=== PATIENT | male | born 2000 | race African-American/Black ===

== ENCOUNTER 2019-01-11 21:40 | Emergency (ER) | payer OTHER ==
[~2019-01-11] VITALS: Ht 185.4 cm; Wt 72.0 kg
[~2019-01-11 21:40] MED LIST: NORVASC; enalapril
[2019-01-11] MEDS: LORAZEPAM 2MG/ML CPJ IV ONE (22:33)
[2019-01-11] MEDS: SODIUM CHLORIDE 0.9% 1,000 ML IV ONE (22:33)
[2019-01-11] MEDS: KETOROLAC 15MG/ML VIAL IV ONE (22:33)
[2019-01-11 22:40] LABS: BASOPHILS % 0.4 % (0.0-2.0); CHLORIDE 108 mEq/L (98-107); EOSINOPHILS % 0.9 % (0.0-5.0); HEMATOCRIT. 39.8 % (42.0-52.0); HEMOGLOBIN. 13.1 g/dL (14.0-18.0); LYMPHOCYTES % 24.2 % (20.0-50.0); MEAN CORPUSCULAR HEMOGLOBIN 30.1 pg (28.0-32.0); MEAN CORPUSCULAR VOLUME 91.4 fL (80.0-94.0); MONOCYTES % 8.4 % (2.0-8.0); NEUTROPHILS % 66.1 % (40.0-76.0); PLATELET 154 x1000/uL (130-400); RED BLOOD CELL COUNT 4.35 mill/uL (4.7-6.1); RED CELL DISTRIBUTION WIDTH 14.1 % (11.6-14.6)
[2019-01-11 22:45] LABS: ETHANOL BLOOD < 10 mg/dL
[2019-01-11 22:49] LABS: CREATINE KINASE 251 IU/L (39-308)
[2019-01-12 01:50] VITALS: BP 179/107
== END 2019-01-12 02:03 | disposition home or self-care (01) ==
LOC: ER 21:40
DX: R07.89 Other chest pain (principal); F41.9 Anxiety disorder, unspecified; I10 Essential (primary) hypertension
CPT/HCPCS: 36415; 71045; 80053; 80320; 82550; 83880; 84484; 85025; 93005; 96374; 96375; 99284; J1885; J2060; J7030; Z7610; G0480

== ENCOUNTER 2022-05-28 13:49 | Emergency (ER) | payer OTHER ==
[~2022-05-28] VITALS: Ht 188 cm; Wt 82.0 kg
[2022-05-28] MEDS ORDERED: ONDANSETRON HCL 4MG/2ML INJ IV ONE (14:30)
[2022-05-28 16:53] LABS: BASOPHILS % 0.2 % (0.0-2.0); HEMATOCRIT. 41.7 % (42.0-52.0); LYMPHOCYTES % 11.3 % (20.0-50.0); MEAN CORPUSCULAR HEMOGLOBIN 31.2 pg (28.0-32.0); MEAN CORPUSCULAR VOLUME 93.4 fL (80.0-94.0); MONOCYTES % 3.8 % (2.0-8.0); NEUTROPHILS % 84.7 % (40.0-76.0); PLATELET 125 x1000/uL (130-400); RED BLOOD CELL COUNT 4.47 mill/uL (4.7-6.1); RED CELL DISTRIBUTION WIDTH 12.7 % (11.6-14.6)
[2022-05-28 17:08] LABS: CHLORIDE 104 mEq/L (98-107)
[2022-05-28 17:19] LABS: ETHANOL BLOOD < 10 mg/dL
[2022-05-28 18:10] VITALS: BP 182/123
== END 2022-05-28 18:42 | disposition home or self-care (01) ==
LOC: ER 13:49
DX: I10 Essential (primary) hypertension (principal); R00.1 Bradycardia, unspecified; Z63.4 Disappearance and death of family member
CPT/HCPCS: 36415; 71045; 80053; 80307; 80320; 80329; 83880; 84484; 85025; 93005; 99285; G0480

== ENCOUNTER 2025-04-24 03:00 | Inpatient (IN) | payer OTHER ==
[2025-04-24] VITALS (50 sets, daily range): BP systolic 158–209; BP diastolic 90–134; PULSE 86–118; RESP 15–35; TEMP 36.4–37.1408; O2SAT 73–100
[~2025-04-24] VITALS: Ht 182.9 cm; Wt 81.7 kg
[2025-04-24 03:57] LABS: BASOPHILS % 0.5 % (0.0-2.0); EOSINOPHILS % 1.6 % (0.0-5.0); HEMATOCRIT. 23.0 % (42.0-52.0); HEMOGLOBIN. 7.5 g/dL (14.0-18.0); LYMPHOCYTES % 7.9 % (20.0-50.0); MEAN PLATELET VOLUME 9.1 fl (7.4-10.4); MONOCYTES % 9.9 % (2.0-8.0); NEUTROPHILS % 80.1 % (40.0-76.0); PLATELET 198 x1000/uL (130-400); RED BLOOD CELL COUNT 2.53 mill/uL (4.7-6.1); RED CELL DISTRIBUTION WIDTH 15.0 % (11.6-14.6)
[2025-04-24] MEDS: HYDRALAZINE 20MG/ML VIAL IV ONE (04:11)
[2025-04-24 04:21] LABS: ETHANOL BLOOD < 10 mg/dL (<10); TROPONIN I HIGH SENSITIVITY 45 ng/L (3.0-53)
[2025-04-24 04:22] LABS: ASPARTATE AMINOTRANSFERASE 17 IU/L (<34); BILIRUBIN DIRECT < 0.1 mg/dL (<=3.0); BILIRUBIN TOTAL 0.2 mg/dL (0.1-1.0); PROTEIN TOTAL 5.4 g/dL (6.0-8.3)
[2025-04-24 04:22] LABS: UREA NITROGEN BLOOD 60.0 mg/dL (9-23)
[2025-04-24 04:25] LABS: INR 0.9
[2025-04-24 04:26] LABS: CREATININE 14.0 mg/dL (0.6-1.3)
[2025-04-24] MEDS: AMLODIPINE 10MG TABLET PO NR (05:05)
[2025-04-24] MEDS: HYDRALAZINE 20MG/ML VIAL IV NR (05:05)
[2025-04-24] MEDS: MORPHINE SULFATE 4 MG/ML INJ (FOR IV/IM USE) IV NR (05:25)
[2025-04-24] MEDS: ONDANSETRON HCL 4MG/2ML INJ IV NR (05:25)
[2025-04-24] MEDS: FUROSEMIDE 40MG/4ML VIAL IVP ONE (05:25)
[2025-04-24 06:42] LABS: CLARITY URINE CLEAR (CLEAR); COLOR URINE YELLOW (YELLOW); GLUCOSE URINE TRACE (NEGATIVE); KETONES URINE NEGATIVE (NEGATIVE); LEUKOCYTE ESTERASE URINE NEGATIVE (NEGATIVE); NITRITE URINE NEGATIVE (NEGATIVE); OCCULT BLOOD URINE NEGATIVE (NEGATIVE); PH URINE 8.5 (4.5-8.0); PROTEIN URINE 2+ (NEGATIVE); SPECIFIC GRAVITY URINE 1.008 (1.005-1.030); UROBILINOGEN URINE 0.2 E.U./dL (0.2-1.0)
[2025-04-24 06:56] LABS: *AMPHETAMINES SCREEN URINE NEGATIVE (NEGATIVE); *BARBITURATES SCREEN URINE NEGATIVE (NEGATIVE); *BENZODIAZEPINES SCREEN URINE NEGATIVE (NEGATIVE); *COCAINE SCREEN URINE NEGATIVE (NEGATIVE); BACTERIA URINE NONE SEEN; CANNABINOID URINE SCREEN NEGATIVE (NEGATIVE); ECSTASY MDMA SCREEN URINE NEGATIVE (NEGATIVE); METHADONE URINE SCREEN NEGATIVE (NEGATIVE); OPIATES URINE SCREEN NEGATIVE (NEGATIVE); PHENCYCLIDINE URINE SCREEN NEGATIVE (NEGATIVE); RBC URINE 0-2 /hpf (0-2); SQUAMOUS EPITHELIAL CELL URINE FEW /lpf (RARE/1+); WBC URINE 0-2 /hpf (0-2)
[2025-04-24] MEDS: NICARDIPINE 40MG/200ML PREMIX 200 ML IV PRN (07:00)
[2025-04-24] MEDS: LORAZEPAM 2MG/ML UD SYRINGE IV NR (07:07)
[2025-04-24] MEDS ORDERED: DOCUSATE SODIUM 100MG CAPSULE PO PRN (11:00)
[2025-04-24] MEDS ORDERED: CLONIDINE 0.1MG TABLET PO PRN (11:00)
[2025-04-24] MEDS ORDERED: IPRATROPIUM/ALBUTEROL 0.5-3(2.5)MG/3ML NEB HHN PRN (11:00)
[2025-04-24] MEDS ORDERED: ONDANSETRON HCL 4MG/2ML INJ IV PRN (11:00)
[2025-04-24] MEDS ORDERED: ACETAMINOPHEN 325MG TABLET PO PRN ×2 (11:00)
[2025-04-24] MEDS ORDERED: CLON0.3T PO (11:59)
[2025-04-24] MEDS ORDERED: OXYC10TA48 PO (11:59)
[2025-04-24] MEDS ORDERED: NICARDIPINE 100 MG in SODIUM CHLORIDE 0.9% 60 ML IV PRN (12:00)
[2025-04-24] MEDS: NICARDIPINE 50 MG in SODIUM CHLORIDE 0.9% 250 ML IV PRN (12:22)
[2025-04-24] MEDS ORDERED: CEFEPIME 2GM IN DEXT 5% 100ML IV SCH (12:45)
[2025-04-24] MEDS: CEFEPIME 2GM/100ML 100 ML IV SCH (14:00)
[2025-04-24] MEDS: ENOXAPARIN 30MG/0.3ML SYR SUBCUT SCH (14:50)
[2025-04-24] MEDS: CLONIDINE 0.2MG TABLET PO SCH (15:03)
[2025-04-24 15:43] LABS: TROPONIN I HIGH SENSITIVITY 64 ng/L (3.0-53)
[2025-04-24 16:01] LABS: HEPATITIS A AB IGM NEGATIVE (Negative); HEPATITIS B CORE AB IGM NEGATIVE (Negative)
[2025-04-24 16:02] LABS: HEPATITIS C AB NON REACTIVE (Neg) (Negative)
[2025-04-24] MEDS: MINOXIDIL 10MG TABLET PO SCH (16:49)
[2025-04-24] MEDS ORDERED: FOLI-43 MT (17:49)
[2025-04-24] MEDS ORDERED: CARV25TA47 PO (17:49)
[2025-04-24] MEDS ORDERED: SPIR25TA6 MT (17:49)
[2025-04-24] MEDS ORDERED: AMLO-337 MT (17:49)
[2025-04-24] MEDS ORDERED: MINO2.5T2 MT (17:49)
[2025-04-24] MEDS ORDERED: TORS20TA4 MT (17:49)
[2025-04-24] MEDS: AMLODIPINE 5MG TABLET PO SCH (20:10)
[2025-04-24] MEDS: METOPROLOL TARTRATE 50MG TABLET PO SCH (20:10)
== END 2025-04-24 22:53 | disposition left against medical advice (07) | DRG 189 ==
LOC: ER 03:00 → EDBEDREQTM 05:41 → EDBEDREQ 05:41 → EDBEDREQSVC 05:41 → ENRESERV 05:56 → MICUNO 06:06 → EDBEDREQSVC 06:10 → EDBEDREQTM 06:10 → ENRESERVTM 06:13 → CANRESERV 06:13 → ENRESERV 08:32
PROVIDERS: ADMIT Internal Medicine; ATTEND Internal Medicine
PROC: 5A1D70Z Performance of Urinary Filtration, Intermittent, Less than 6 Hours Per Day (ICD-10-PCS; principal; 2025-04-24)
PROC: 5A09357 Assistance with Respiratory Ventilation, Less than 24 Consecutive Hours, Continuous Positive Airway Pressure (ICD-10-PCS; 2025-04-24)
DX: J96.00 Acute respiratory failure, unspecified whether with hypoxia or hypercapnia (principal); J18.9 Pneumonia, unspecified organism; N18.6 End stage renal disease; I16.1 Hypertensive emergency; I12.0 Hypertensive chronic kidney disease with stage 5 chronic kidney disease or end stage renal disease; D63.8 Anemia in other chronic diseases classified elsewhere; D72.0 Genetic anomalies of leukocytes; Z53.29 Procedure and treatment not carried out because of patient's decision for other reasons; E87.70 Fluid overload, unspecified; Z99.2 Dependence on renal dialysis; Z79.899 Other long term (current) drug therapy
CPT/HCPCS: 36415; 71045; 80048; 80076; 80305; 80320; 81003; 83735; 83880; 84145; 84484; 85025; 85379; 86705; 86709; 87340; 90935; 93005; 94070; 94660; 94664; 96374; 96375; 98960; 99285; J0360; J0692; J1650; J1938; J2060; J3490; J7050; G0480

== ENCOUNTER 2025-05-15 04:12 | Inpatient (IN) | payer OTHER ==
[2025-05-15] VITALS (56 sets, daily range): BP systolic 157–228; BP diastolic 95–146; PULSE 61–108; RESP 15–26; TEMP 36.114–36.9; O2SAT 94–100
[~2025-05-15] VITALS: Ht 177.8 cm; Wt 78.6 kg
[~2025-05-15 04:12] MED LIST changes: +AMLO-337 MT; +CARV25TA47 PO; +CLON0.3T PO; +FOLI-43 MT; +MINO2.5T2 MT; -NORVASC; +OXYC10TA48 PO; +SPIR25TA6 MT; +TORS20TA4 MT; -enalapril
[2025-05-15] MEDS: PIPERACILLIN/TAZO 3.375G/50ML 50 ML IV ONE (04:56)
[2025-05-15] MEDS: ONDANSETRON HCL 4MG/2ML INJ IV ONE (04:56)
[2025-05-15] MEDS: MORPHINE SULFATE 4 MG/ML INJ (FOR IV/IM USE) IV ONE (04:57)
[2025-05-15] MEDS: SODIUM CHLORIDE 0.9% 500 ML IV ONE (04:58)
[2025-05-15] MEDS: HYDRALAZINE 20MG/ML VIAL IV ONE (05:21)
[2025-05-15 05:39] LABS: BASOPHILS % 0.4 % (0.0-2.0); EOSINOPHILS % 1.5 % (0.0-5.0); HEMATOCRIT. 23.8 % (42.0-52.0); HEMOGLOBIN. 7.9 g/dL (14.0-18.0); LYMPHOCYTES % 8.4 % (20.0-50.0); MEAN PLATELET VOLUME 9.4 fl (7.4-10.4); MONOCYTES % 7.3 % (2.0-8.0); NEUTROPHILS % 82.4 % (40.0-76.0); PLATELET 182 x1000/uL (130-400); RED BLOOD CELL COUNT 2.65 mill/uL (4.7-6.1); RED CELL DISTRIBUTION WIDTH 14.5 % (11.6-14.6)
[2025-05-15 05:46] LABS: INR 0.9
[2025-05-15 05:48] LABS: UREA NITROGEN BLOOD 61 mg/dL (9-23)
[2025-05-15 05:50] LABS: ASPARTATE AMINOTRANSFERASE 14 IU/L (<34); BILIRUBIN DIRECT < 0.1 mg/dL (<=3.0); BILIRUBIN TOTAL 0.3 mg/dL (0.1-1.0); PROTEIN TOTAL 6.6 g/dL (6.0-8.3)
[2025-05-15 05:51] LABS: CREATININE 16.2 mg/dL (0.6-1.3)
[2025-05-15 05:52] LABS: TROPONIN I HIGH SENSITIVITY 74 ng/L (3.0-53)
[2025-05-15] MEDS: VANCOMYCIN 1G PREMIX 200 ML IV ONE (06:03)
[2025-05-15 06:10] LABS: BG BASE EXCESS -1.8 mmol/L (-2.0-3.0); BG CARBOXYHEMOGLOBIN 1.3 % (0.5-1.5); BG DEOXYHEMOGLOBIN 8.3 % (0.0-5.0); BG FLOW(L/min) 6.00 L/min; BG FRACTION INSPIRED OXYGEN 44; BG HCO3 ACT 22.5 mmol/L (21.0-28.0); BG METHEMOGLOBIN 0.3 % (0.5-1.5); BG OXYGEN SATURATION 91.6 % (94.0-98.0); BG OXYHEMOGLOBIN 90.1 % (94.0-98.0); BG PCO2 36.0 mmHg (35.0-48.0); BG PH 7.413 (7.350-7.450); BG PO2 65.6 mmHg (83.0-108.0); BG SAMPLE SITE LEFT RADIAL; BG TOTAL HEMOGLOBIN 8.8 g/dL (13.5-17.5); BG VENT MODE NASAL CANNULA
[2025-05-15] MEDS: NITROGLYCERIN 50MG PREMIX 250 ML IV ONE (06:24)
[2025-05-15] MEDS ORDERED: NALOXONE HCL 0.4MG/ML VIAL IV PRN (09:30)
[2025-05-15] MEDS: MORPHINE SULFATE 4 MG/ML INJ (FOR IV/IM USE) IV PRN ×2 (09:38→13:00)
[2025-05-15] MEDS ORDERED: ONDANSETRON HCL 4MG/2ML INJ IV PRN (10:30)
[2025-05-15] MEDS ORDERED: DEXTROSE 50% WATER 50ML SYRINGE IV PRN (10:30)
[2025-05-15] MEDS: INSULIN LISPRO 100 UNITS/ML SUBCUT SCH (12:00)
[2025-05-15] MEDS: NITROGLYCERIN 50MG PREMIX 250 ML IV PRN (12:04)
[2025-05-15 12:10] LABS: HEPATITIS A AB IGM NEGATIVE (Negative); HEPATITIS B CORE AB IGM NEGATIVE (Negative)
[2025-05-15 12:11] LABS: HEPATITIS C AB NON REACTIVE (Neg) (Negative)
[2025-05-15] MEDS ORDERED: ACETAMINOPHEN 325MG TABLET PO PRN ×2 (12:30)
[2025-05-15] MEDS: IPRATROPIUM/ALBUTEROL 0.5-3(2.5)MG/3ML NEB HHN SCH (12:39)
[2025-05-15] MEDS: BLOOD SUGAR DIAGNOSTIC STRIP TEST SCH (12:58)
[2025-05-15] MEDS: DIPHENHYDRAMINE 50MG/ML VIAL IV PRN (12:59)
[2025-05-15 13:27] LABS: C REACTIVE PROTEIN HIGH SENS 4.91 mg/l (<1.00); ETHANOL BLOOD < 10 mg/dL (<10); LDL CHOLESTEROL 94 mg/dL (5-100); TRIGLYCERIDE 113 mg/dL (0-150)
[2025-05-15 13:31] LABS: TROPONIN I HIGH SENSITIVITY 71.0 ng/L (3.0-53)
[2025-05-15] MEDS: LEVOFLOXACIN 750MG PREMIX 150 ML IV NR (13:33)
[2025-05-15] MEDS: SODIUM CHLORIDE 0.9% 3ML FLUSH IVF SCH (13:54)
[2025-05-15 14:07] LABS: CLARITY URINE CLEAR (CLEAR); COLOR URINE YELLOW (YELLOW); GLUCOSE URINE TRACE (NEGATIVE); KETONES URINE NEGATIVE (NEGATIVE); LEUKOCYTE ESTERASE URINE NEGATIVE (NEGATIVE); NITRITE URINE NEGATIVE (NEGATIVE); OCCULT BLOOD URINE NEGATIVE (NEGATIVE); PH URINE 8.5 (4.5-8.0); PROTEIN URINE 2+ (NEGATIVE); SPECIFIC GRAVITY URINE 1.009 (1.005-1.030); UROBILINOGEN URINE 0.2 E.U./dL (0.2-1.0)
[2025-05-15] MEDS: HYDRALAZINE 20MG/ML VIAL IV PRN ×2 (14:20→18:24)
[2025-05-15 14:27] LABS: BACTERIA URINE NONE SEEN; RBC URINE 0-2 /hpf (0-2); SQUAMOUS EPITHELIAL CELL URINE RARE /lpf (RARE/1+); WBC URINE 0-2 /hpf (0-2); YEAST URINE NONE SEEN
[2025-05-15 14:30] LABS: *AMPHETAMINES SCREEN URINE NEGATIVE (NEGATIVE); *BARBITURATES SCREEN URINE NEGATIVE (NEGATIVE); *BENZODIAZEPINES SCREEN URINE NEGATIVE (NEGATIVE); *COCAINE SCREEN URINE NEGATIVE (NEGATIVE); CANNABINOID URINE SCREEN NEGATIVE (NEGATIVE); ECSTASY MDMA SCREEN URINE NEGATIVE (NEGATIVE); METHADONE URINE SCREEN NEGATIVE (NEGATIVE); OPIATES URINE SCREEN NEGATIVE (NEGATIVE); PHENCYCLIDINE URINE SCREEN NEGATIVE (NEGATIVE)
[2025-05-15] MEDS: AMLODIPINE 10MG TABLET PO SCH (14:43)
[2025-05-15] MEDS: CLONIDINE 0.3MG TABLET PO SCH (16:31)
[2025-05-15] MEDS ORDERED: LOSA-415 MT (16:53)
[2025-05-15 17:33] LABS: TROPONIN I HIGH SENSITIVITY 67 ng/L (3.0-53)
[2025-05-15] MEDS: LOSARTAN 100 MG TABLET PO SCH (18:24)
[2025-05-15] MEDS: MINOXIDIL 2.5MG TABLET PO SCH (18:24)
[2025-05-15] MEDS: CARVEDILOL 12.5MG TABLET PO SCH (18:25)
[2025-05-16] VITALS (57 sets, daily range): BP systolic 135–189; BP diastolic 84–119; PULSE 70–104; RESP 13–27; TEMP 36.4–36.83628; O2SAT 93–100
[2025-05-16 05:30] LABS: BASOPHILS % 0.5 % (0.0-2.0); EOSINOPHILS % 2.3 % (0.0-5.0); HEMATOCRIT. 21.9 % (42.0-52.0); HEMOGLOBIN. 7.2 g/dL (14.0-18.0); LYMPHOCYTES % 11.7 % (20.0-50.0); MEAN PLATELET VOLUME 8.9 fl (7.4-10.4); MONOCYTES % 12.6 % (2.0-8.0); NEUTROPHILS % 72.9 % (40.0-76.0); PLATELET 166 x1000/uL (130-400); RED BLOOD CELL COUNT 2.46 mill/uL (4.7-6.1); RED CELL DISTRIBUTION WIDTH 14.9 % (11.6-14.6)
[2025-05-16 05:41] LABS: UREA NITROGEN BLOOD 42.0 mg/dL (9-23)
[2025-05-16 06:01] LABS: CREATININE 12.2 mg/dL (0.6-1.3)
[2025-05-16] MEDS: ONDANSETRON HCL 4MG/2ML INJ IV PRN (08:12)
[2025-05-16] MEDS ORDERED: ENOXAPARIN 30MG/0.3ML SYR SUBCUT SCH (09:00)
[2025-05-16] MEDS: PANTOPRAZOLE SODIUM 40 MG/VIAL IV SCH (09:55)
[2025-05-16] MEDS: ENOXAPARIN 30MG/0.3ML SYR SUBCUT SCH (09:55)
[2025-05-16] MEDS: FOLIC ACID 1MG TABLET PO SCH (09:56)
[2025-05-16] MEDS ORDERED: DOXAZOSIN MESYLATE 2MG TABLET PO SCH (16:00)
[2025-05-16] MEDS ORDERED: NIFEDIPINE XL 90MG TAB PO SCH (17:00)
[2025-05-17] MEDS ORDERED: LEVOFLOXACIN 500MG PREMIX 100 ML IV SCH (11:00)
== END 2025-05-16 19:19 | disposition home or self-care (01) | DRG 871 ==
LOC: ER 04:17 → MICUSO 06:03 → EDBEDREQ 06:45 → EDBEDREQSVC 06:45 → EDBEDREQTM 06:45 → ENRESERV 08:00
PROVIDERS: ADMIT Internal Medicine; ATTEND Internal Medicine
PROC: 5A1D70Z Performance of Urinary Filtration, Intermittent, Less than 6 Hours Per Day (ICD-10-PCS; principal; 2025-05-15)
PROC: 5A1D70Z Performance of Urinary Filtration, Intermittent, Less than 6 Hours Per Day (ICD-10-PCS; 2025-05-16)
DX: A41.9 Sepsis, unspecified organism (principal); I50.31 Acute diastolic (congestive) heart failure; J96.01 Acute respiratory failure with hypoxia; N18.6 End stage renal disease; I13.2 Hypertensive heart and chronic kidney disease with heart failure and with stage 5 chronic kidney disease, or end stage renal disease; I16.1 Hypertensive emergency; D63.8 Anemia in other chronic diseases classified elsewhere; E83.52 Hypercalcemia; E11.22 Type 2 diabetes mellitus with diabetic chronic kidney disease; Z99.2 Dependence on renal dialysis
CPT/HCPCS: 36415; 36600; 71045; 74176; 80048; 80061; 80076; 80305; 80320; 81003; 82375; 82805; 82962; 83036; 83605; 83880; 84145; 84443; 84484; 85025; 86141; 86705; 86709; 86850; 86900; 87340; 90935; 93005; 94070; 94640; 94664; 98960; 99291; A4606; J0360; J1200; J1650; J1956; J2270; J2405; J2470; J2543; J3373; J3490; J7040; G0480

== ENCOUNTER 2025-07-02 04:52 | Inpatient (IN) | payer OTHER ==
[2025-07-02] VITALS (30 sets, daily range): BP systolic 159–215; BP diastolic 96–133; PULSE 105–120; RESP 13–25; TEMP 36.6–37.252; O2SAT 95–100
[~2025-07-02] VITALS: Ht 182.9 cm; Wt 80.4 kg
[~2025-07-02 04:52] MED LIST changes: +LOSA-415 MT; -SPIR25TA6 MT; -TORS20TA4 MT
[2025-07-02] MEDS: ONDANSETRON HCL 4MG/2ML INJ IV ONE (06:23)
[2025-07-02] MEDS: HYDRALAZINE 20MG/ML VIAL IV ONE (06:23)
[2025-07-02] MEDS: MORPHINE SULFATE 4 MG/ML INJ (FOR IV/IM USE) IV ONE ×2 (06:23→07:56)
[2025-07-02 06:38] LABS: BASOPHILS % 0.6 % (0.0-2.0); EOSINOPHILS % 1.7 % (0.0-5.0); HEMATOCRIT. 28.8 % (42.0-52.0); HEMOGLOBIN. 9.5 g/dL (14.0-18.0); LYMPHOCYTES % 11.1 % (20.0-50.0); MEAN PLATELET VOLUME 9.2 fl (7.4-10.4); MONOCYTES % 8.6 % (2.0-8.0); NEUTROPHILS % 78.0 % (40.0-76.0); PLATELET 124 x1000/uL (130-400); RED BLOOD CELL COUNT 3.25 mill/uL (4.7-6.1); RED CELL DISTRIBUTION WIDTH 14.8 % (11.6-14.6)
[2025-07-02 06:50] LABS: UREA NITROGEN BLOOD 68.0 mg/dL (9-23)
[2025-07-02 06:51] LABS: ETHANOL BLOOD < 10 mg/dL (<10)
[2025-07-02 06:53] LABS: ASPARTATE AMINOTRANSFERASE 12 IU/L (<34); BILIRUBIN DIRECT 0.2 mg/dL (<=3.0); BILIRUBIN TOTAL 0.5 mg/dL (0.1-1.0); PROTEIN TOTAL 6.9 g/dL (6.0-8.3)
[2025-07-02 07:03] LABS: CREATININE 16.8 mg/dL (0.6-1.3)
[2025-07-02 07:06] LABS: TROPONIN I HIGH SENSITIVITY 84 ng/L (3.0-53)
[2025-07-02 07:27] LABS: INR 1.0
[2025-07-02] MEDS: CLONIDINE 0.1MG TABLET PO NR (07:45)
[2025-07-02] MEDS ORDERED: CLONIDINE 0.3MG TABLET PO ONE (07:45)
[2025-07-02] MEDS: LABETALOL 5MG/ML 4ML INJ IV ONE (07:57)
[2025-07-02] MEDS: ONDANSETRON HCL 4MG/2ML INJ IV SCH (10:14)
[2025-07-02] MEDS: HYDRALAZINE 20MG/ML VIAL IV SCH (10:14)
[2025-07-02] MEDS: MORPHINE SULFATE 4 MG/ML INJ (FOR IV/IM USE) IV SCH (10:15)
[2025-07-02 10:59] LABS: CLARITY URINE CLEAR (CLEAR); COLOR URINE YELLOW (YELLOW); PH URINE 8.5 (4.5-8.0); SPECIFIC GRAVITY URINE 1.009 (1.005-1.030)
[2025-07-02 11:00] LABS: GLUCOSE URINE TRACE (NEGATIVE); KETONES URINE NEGATIVE (NEGATIVE); LEUKOCYTE ESTERASE URINE NEGATIVE (NEGATIVE); NITRITE URINE NEGATIVE (NEGATIVE); OCCULT BLOOD URINE TRACE (NEGATIVE); PROTEIN URINE 2+ (NEGATIVE); UROBILINOGEN URINE 0.2 E.U./dL (0.2-1.0)
[2025-07-02 11:16] LABS: RBC URINE 0-2 /hpf (0-2); SQUAMOUS EPITHELIAL CELL URINE RARE /lpf (RARE/1+); WBC URINE 0-2 /hpf (0-2)
[2025-07-02 11:17] LABS: BACTERIA URINE NONE SEEN
[2025-07-02] MEDS: NICARDIPINE 40MG/200ML PREMIX 200 ML IV PRN ×3 (11:43→23:02)
[2025-07-02] MEDS: METOCLOPRAMIDE HCL 10MG/2ML VIAL IV SCH (12:04)
[2025-07-02] MEDS ORDERED: NALOXONE HCL 0.4MG/ML VIAL IV PRN (17:00)
[2025-07-02] MEDS: MORPHINE SULFATE 4 MG/ML INJ (FOR IV/IM USE) IV PRN (17:10)
[2025-07-02] MEDS: ONDANSETRON HCL 4MG/2ML INJ IV PRN (18:24)
[2025-07-02] MEDS: NITROGLYCERIN 50MG PREMIX 250 ML IV PRN (18:44)
[2025-07-02 19:50] LABS: *AMPHETAMINES SCREEN URINE NEGATIVE (NEGATIVE); *BARBITURATES SCREEN URINE NEGATIVE (NEGATIVE); *BENZODIAZEPINES SCREEN URINE NEGATIVE (NEGATIVE); *COCAINE SCREEN URINE NEGATIVE (NEGATIVE); CANNABINOID URINE SCREEN NEGATIVE (NEGATIVE); ECSTASY MDMA SCREEN URINE NEGATIVE (NEGATIVE); METHADONE URINE SCREEN NEGATIVE (NEGATIVE); OPIATES URINE SCREEN PRESUMPTIVE POSITIVE (NEGATIVE); PHENCYCLIDINE URINE SCREEN NEGATIVE (NEGATIVE)
[2025-07-02] MEDS: PANTOPRAZOLE SODIUM 40 MG/VIAL IV SCH (20:37)
[2025-07-02] MEDS: SODIUM CHLORIDE 0.9% 3ML FLUSH IVF SCH (20:37)
[2025-07-02] MEDS: DIPHENHYDRAMINE 50MG/ML VIAL IV PRN (20:38)
[2025-07-03] VITALS (85 sets, daily range): BP systolic 116–212; BP diastolic 64–139; PULSE 97–130; RESP 5–29; TEMP 36.33624–37.2; O2SAT 94–100
[2025-07-03 01:42] LABS: HEPATITIS A AB IGM NEGATIVE (Negative)
[2025-07-03 01:43] LABS: HEPATITIS B CORE AB IGM NEGATIVE (Negative); HEPATITIS C AB NON REACTIVE (Neg) (Negative)
[2025-07-03 01:44] LABS: HEPATITIS C AB NON REACTIVE (Neg) (Negative)
[2025-07-03 08:25] LABS: BASOPHILS % 0.7 % (0.0-2.0); EOSINOPHILS % 0.6 % (0.0-5.0); HEMATOCRIT. 27.2 % (42.0-52.0); HEMOGLOBIN. 9.1 g/dL (14.0-18.0); LYMPHOCYTES % 8.3 % (20.0-50.0); MEAN PLATELET VOLUME 9.3 fl (7.4-10.4); MONOCYTES % 9.0 % (2.0-8.0); NEUTROPHILS % 81.4 % (40.0-76.0); PLATELET 152 x1000/uL (130-400); RED BLOOD CELL COUNT 3.04 mill/uL (4.7-6.1); RED CELL DISTRIBUTION WIDTH 14.6 % (11.6-14.6)
[2025-07-03 08:34] LABS: UREA NITROGEN BLOOD 79 mg/dL (9-23)
[2025-07-03 08:50] LABS: CREATININE 18.0 mg/dL (0.6-1.3)
[2025-07-03 08:51] LABS: PHOSPHORUS 8.2 mg/dL (2.5-4.9)
[2025-07-03] MEDS: SEVELAMER CARBONATE 800 MG TABLET PO SCH (13:33)
[2025-07-03] MEDS: MINOXIDIL 10MG TABLET PO SCH (14:13)
[2025-07-03] MEDS: HYDRALAZINE 20MG/ML VIAL IV PRN (14:14)
[2025-07-03] MEDS: CARVEDILOL 12.5MG TABLET PO SCH (21:33)
[2025-07-04] VITALS (66 sets, daily range): BP systolic 120–171; BP diastolic 60–106; PULSE 83–130; RESP 11–27; TEMP 36.6696–36.9; O2SAT 97–98
[2025-07-04 07:22] LABS: HEMATOCRIT. 25.5 % (42.0-52.0); HEMOGLOBIN. 8.3 g/dL (14.0-18.0); MEAN PLATELET VOLUME 8.8 fl (7.4-10.4); PLATELET 147 x1000/uL (130-400); RED BLOOD CELL COUNT 2.88 mill/uL (4.7-6.1); RED CELL DISTRIBUTION WIDTH 14.8 % (11.6-14.6)
[2025-07-04 07:28] LABS: UREA NITROGEN BLOOD 72.0 mg/dL (9-23)
[2025-07-04 07:48] LABS: CREATININE 18.9 mg/dL (0.6-1.3)
[2025-07-04] MEDS: AMLODIPINE 10MG TABLET PO SCH (08:36)
[2025-07-04] MEDS: LOSARTAN 100 MG TABLET PO SCH (08:37)
[2025-07-04] MEDS: HYDROMORPHONE HCL/PF 1MG/ML INJ IV PRN (19:44)
[2025-07-05] VITALS (34 sets, daily range): BP systolic 117–191; BP diastolic 55–121; PULSE 85–111; RESP 12–59; TEMP 36.8–37.1; O2SAT 88–97
[2025-07-05 04:59] LABS: HEMATOCRIT. 24.8 % (42.0-52.0); HEMOGLOBIN. 8.3 g/dL (14.0-18.0); MEAN PLATELET VOLUME 9.2 fl (7.4-10.4); PLATELET 135 x1000/uL (130-400); RED BLOOD CELL COUNT 2.74 mill/uL (4.7-6.1); RED CELL DISTRIBUTION WIDTH 15.0 % (11.6-14.6)
[2025-07-05 05:10] LABS: UREA NITROGEN BLOOD 49.0 mg/dL (9-23)
[2025-07-05 06:29] LABS: CREATININE 15.3 mg/dL (0.6-1.3)
[2025-07-05] MEDS: ENOXAPARIN 30MG/0.3ML SYR SUBCUT SCH (08:26)
[2025-07-05 09:53] LABS: BAND% 1.0 % (1.0-6.0); EOSINOPHILS % MANUAL 1.0 % (0.0-5.0); LYMPHOCYTES % MANUAL 22.0 % (20.0-50.0); MONOCYTES % MANUAL 10.0 % (2.0-8.0); NEUTROPHILS % MANUAL 66.0 % (45.0-75.0); PLATELET ESTIMATE NORMAL
[2025-07-05 11:55] LABS: EOSINOPHILS % MANUAL 1.0 % (0.0-5.0); LYMPHOCYTES % MANUAL 21.0 % (20.0-50.0); MONOCYTES % MANUAL 9.0 % (2.0-8.0); NEUTROPHILS % MANUAL 69.0 % (45.0-75.0); PLATELET ESTIMATE NORMAL
[2025-07-05] MEDS: METOCLOPRAMIDE HCL 10MG/2ML VIAL IV PRN (15:49)
[2025-07-05 22:49] LABS: BODY FLUID RBC 39 /cu mm (0-2000); BODY FLUID WBC 73 /cu mm (0-200)
[2025-07-05 22:50] LABS: BODY FLUID MONOCYTES 12 %
[2025-07-06] VITALS (35 sets, daily range): BP systolic 93–161; BP diastolic 48–106; PULSE 72–102; RESP 11–25; TEMP 36.28068–37.1; O2SAT 90–100
[2025-07-06 05:44] LABS: HEMATOCRIT. 24.6 % (42.0-52.0); HEMOGLOBIN. 8.1 g/dL (14.0-18.0); MEAN PLATELET VOLUME 8.9 fl (7.4-10.4); PLATELET 162 x1000/uL (130-400); RED BLOOD CELL COUNT 2.77 mill/uL (4.7-6.1); RED CELL DISTRIBUTION WIDTH 14.5 % (11.6-14.6)
[2025-07-06 05:49] LABS: LACTATE DEHYDROGENASE 287 IU/L (120-246); TRIGLYCERIDE 229 mg/dL (0-150); UREA NITROGEN BLOOD 68 mg/dL (9-23)
[2025-07-06 05:51] LABS: ASPARTATE AMINOTRANSFERASE 16 IU/L (<34); BILIRUBIN DIRECT 0.1 mg/dL (<=3.0); BILIRUBIN TOTAL 0.3 mg/dL (0.1-1.0)
[2025-07-06 05:52] LABS: PROTEIN TOTAL 6.7 g/dL (6.0-8.3)
[2025-07-06 06:00] LABS: FOLIC ACID (FOLATE) SERUM 8.34 ng/mL (>5.38); VITAMIN B12 SERUM 312 pg/mL (211-911)
[2025-07-06 06:18] LABS: CREATININE 17.6 mg/dL (0.6-1.3)
[2025-07-06 06:20] LABS: PHOSPHORUS 9.8 mg/dL (2.5-4.9)
[2025-07-06] MEDS: LOSARTAN 50 MG TABLET PO SCH (08:45)
[2025-07-06] MEDS: LACTULOSE 20G/30ML UDC PO SCH (10:45)
[2025-07-06] MEDS ORDERED: AMLO10TA80 PO (15:23)
[2025-07-06] MEDS ORDERED: CARV25TA47 PO (15:23)
[2025-07-06] MEDS ORDERED: MINO10TA2 PO (15:23)
[2025-07-06] MEDS ORDERED: SEVE800T8 PO (15:23)
[2025-07-06] MEDS ORDERED: LOSA50TA41 PO (15:23)
[2025-07-06] MEDS ORDERED: ATOR20TA65 PO (15:23)
[2025-07-06 16:36] LABS: EOSINOPHILS % MANUAL 1.0 % (0.0-5.0); LYMPHOCYTES % MANUAL 15.0 % (20.0-50.0); MONOCYTES % MANUAL 6.0 % (2.0-8.0); NEUTROPHILS % MANUAL 78.0 % (45.0-75.0); PLATELET ESTIMATE NORMAL
== END 2025-07-06 17:15 | disposition home or self-care (01) | DRG 640 ==
LOC: ER 04:52 → CVICU 08:36 → EDBEDREQTM 08:50 → EDBEDREQ 08:50 → CANRESERV 09:57 → ENRESERV 09:57 → EDBEDREQSVC 11:37 → CANRESERV 13:21 → ENRESERV 13:21 → CVICU 07-06 09:24
PROVIDERS: ADMIT Internal Medicine; ATTEND Internal Medicine
PROC: 5A1D70Z Performance of Urinary Filtration, Intermittent, Less than 6 Hours Per Day (ICD-10-PCS; principal; 2025-07-03)
PROC: 5A1D70Z Performance of Urinary Filtration, Intermittent, Less than 6 Hours Per Day (ICD-10-PCS; 2025-07-04)
PROC: 5A1D70Z Performance of Urinary Filtration, Intermittent, Less than 6 Hours Per Day (ICD-10-PCS; 2025-07-06)
DX: E87.70 Fluid overload, unspecified (principal); N18.6 End stage renal disease; K86.1 Other chronic pancreatitis; I13.11 Hypertensive heart and chronic kidney disease without heart failure, with stage 5 chronic kidney disease, or end stage renal disease; D64.9 Anemia, unspecified; Z91.148 Patient's other noncompliance with medication regimen for other reason; Z99.2 Dependence on renal dialysis
CPT/HCPCS: 36415; 71045; 74018; 74176; 76700; 80048; 80076; 80305; 80320; 81003; 82150; 82607; 82746; 82787; 83540; 83550; 83615; 83735; 84100; 84478; 84484; 85025; 86705; 86709; 87340; 90935; 99291; A4606; J0360; J1171; J1200; J1650; J2270; J2405; J2470; J2765; J3490; G0480